=== PATIENT | female | born 1970 | race Caucasian/White ===

== ENCOUNTER 2018-11-11 20:19 | Inpatient (IN) | payer MEDICAID, SELFPAY ==
[2018-11-11] VITALS (22 sets, daily range): BP systolic 109–147; BP diastolic 60–85; PULSE 75–93; RESP 13–23; TEMP 36.9–37; O2SAT 95–100
--- NOTE | 2018-11-11 20:44 | DI.CT_ITS ---
SYMPTOM/DIAGNOSIS: DIZZY, LT FACIAL NUMBNESS NONCONTRAST HEAD CT: Comparison is made with 11/30/16. No intracranial hemorrhage, mass or infarct is seen. The ventricles are normal in size. There is no evidence of skull fracture. The sinuses and mastoid air cells appear clear. The cerebellar tonsils extend slightly below the foramen magnum consistent with tonsillar ectopia. This is unchanged from the previous exam. IMPRESSION: No acute abnormality. CTA HEAD: CT angiography was performed with multi slice acquisition and multi planar and 3D reconstruction. There is no evidence of vascular occlusion, significant stenosis or dissection. No aneurysm is seen. There is no evidence of venous thrombosis. There is normal variant of a hypoplastic right A1 segment. IMPRESSION: No acute abnormality. CTA NECK: CT angiography was performed with multi slice acquisition and multi planar and 3D reconstruction. The common, internal and external carotid arteries and vertebral arteries show normal diameter. No dissection, occlusion or stenosis is seen. There is mild tortuosity of the left internal carotid artery. IMPRESSION: Negative CTA of the neck.
--- NOTE | 2018-11-11 20:49 | ED.GENADUL_ITS ---
Discharge Plan Disposition Patient Disposition: [facility] INPATIENT Condition: Fair Discharge Details Chief Complaint: Dizzy/Sync Clinical Impression: Left facial numbness, Vertigo Primary Care Provider: Edilberto Liang ED Provider: Juancarlos Gan Home Meds and New Rx's Prescriptions: No Action No Known Home Meds RF: 0 Medical Decision Making Patient presents to ED with complaint of left facial numbness that occurred 30 minutes prior to arrival. She had vertigo prior to that for a couple of hours. She is neurologically intact other than subjective decreased face sensation and scores a 1 on the NIH scale. Her blood glucose is fine. She is anxious which may explain her elevated blood pressure which is mild. She is sent for CT head followed by CTA head and neck. Laboratory studies obtained. EKG is sinus rhythm with no acute changes. Patient's laboratory studies are unremarkable. Patient's head CT is normal. Patient CTA of head and neck is read as normal. Patient reports vertigo still present although again not as severe as it been in the past. She feels nauseated. She is ordered for IV Zofran and will follow this with p.o. Antivert. She reports that her face feels better though still is slightly numb to her. She has had no further new neurologic symptoms. Case discussed with hospitalist. Patient will be admitted for further work-up o f TIA/CVA. Lab Data Lab results reviewed: Yes I reviewed the patient's lab results. ECG Data Attestation: I personally reviewed and interpreted this ECG (s) as follows: Prior ECG tracings: not available for review Interpretation: Normal sinus rhythm at a rate of 79. Normal axis and intervals. Normal ST segments. HPI General Mode of arrival: wheelchair . Date/Time Provider Initiated Documentation: 11/11/18 20:22 . Limitations to Documentation: no limitations . Information obtained by: patient . HPI Narrative: Patient presents to ED with development of left facial numbness/ tightness/stinging 30 minutes prior to arrival. 2 hours prior to arrival she had noticed some dizziness which she describes as vertigo. She has history of same. This is not as severe as previous vertigo had been. She denies any headache. She denies any vision change. She was able to walk in. She would not have come in only for the dizziness but became concerned when the left side of her face started to feel funny. She has not noticed numbness elsewhere. She has no weakness. She feels like she is a little confused but she is clearly very anxious right now. She denies having any pain. She has some nausea but no vomiting. She has no significant past medical history but does smoke. Related Data Home Medications Medication Instructions Recorded Confirmed Unknown [No Known Home Meds] 11/11/18 11/11/18 Allergies Allergy/AdvReac Type Severity Reaction Status Date / Time clindamycin Allergy Severe Anaphylaxsi Unverified 11/11/18 20:31 s venom-honey bee Allergy Unverified 11/11/18 20:31 wheat Allergy Unverified 11/11/18 20:31 acetaminophen AdvReac Severe Anaphylaxsi Unverified 11/11/18 20:31 [From Tylenol Cold Head s Congestion] dextromethorphan AdvReac Severe Anaphylaxsi Unverified 11/11/18 20:31 [From Tylenol Cold Head s Congestion] guaifenesin AdvReac Severe Anaphylaxsi Unverified 11/11/18 20:31 [From Tylenol Cold Head s Congestion] phenylephrine AdvReac Severe Anaphylaxsi Unverified 11/11/18 20:31 [From Tylenol Cold Head s Congestion] seasonal allergies Allergy Uncoded 11/11/18 20:31 General Stated Complaint: Dizzy/Sync KURT: 3 Review of Systems Review of Systems 04/10 Review of Systems completed and is negative except as stated above in HPI (Systems reviewed: Const, Eyes, ENT, Resp, CV, GI, , MSK, Skin, Neuro) [facility] Medical History Kidney stones (Chronic) GERD (gastroesophageal reflux disease) (Chronic) Non-celiac gluten sensitivity (Chronic) Surgical History S/P hernia repair (Chronic) section (Inactive) Cholecystectomy (Inactive) Dilation and curettage (Inactive) Social History Smoking/Tobacco Use Status: Current every day Tobacco Type: cigars Alcohol Intake: never Drug use: Never Do you feel safe at home: Yes Do you feel safe in your relationship?: Yes Exam Narrative Exam Narrative: Vitals: Afebrile with mild elevated blood pressure but otherwise normal vital signs. Const: WDWN female anxious but in NAD. HEENT: NC/AT. Normal facial exam. Eyes: Normal conjunctiva and sclera. PERRL and EOMI with no nystagmus. Neck: Supple. Trachea midline. Lungs: Normal respiratory effort. Lungs are clear. Cor: RRR without murmur/gallop. Good radial pulses. GI: Soft. NT/ND. No guarding or rebound. Neuro: A+O x 3. Speech is normal. She seems a little confused. CN II - XII is intact. Sensory is subjectively decreased left face but is in tact. Strength is 5/5. Sensory in tact elsewhere. No ataxia. Ext: No C/C/E. No deformity or tenderness. Skin: Warm and dry without rash. Course Vital Signs Temperature 98.6 F 11/11/18 20:25 Pulse 81 11/11/18 20:25 Respiratory Rate 18 11/11/18 20:25 Blood Pressure 147/73 H 11/11/18 20:25 Pulse Oximetry 99 11/11/18 20:25 Temperature 98.6 F 11/11/18 20:25 Temperature Source Skin 11/11/18 20:25 Pulse 81 11/11/18 20:25 Respiratory Rate 18 11/11/18 20:25 Respiratory Effort Non-Labored 11/11/18 20:29 Blood Pressure 147/73 H 11/11/18 20:25 Blood Pressure Position Supine 11/11/18 20:25 Pulse Oximetry 99 11/11/18 20:25 Oxygen Delivery Method Room Air 11/11/18 20:25 Oxygen Flow Rate 0 11/11/18 20:25 Pain Level 0 11/11/18 20:25 Critical Care Time Critical Care Time: Yes Total Critical Care Time: 60 Attestation: TIA/CVA work up/admit
[2018-11-11] MEDS: Omnipaque 350 MG/ML 100 ML BTL IJ (20:57)
[2018-11-11 21:04] LABS: Abs Immature Grans 0.08 k/cumm (0.0-0.09); Absolute Basophil Count 0.05 k/cumm (0.0-0.2); Absolute Lymphocyte Count 6.25 k/cumm (1.2-3.4); Absolute Monocyte Count 1.38 k/cumm (0.11-0.7); Absolute Neutrophil Count 9.88 k/cumm (1.2-6.7); Basophils % 0.3; Eosinophils % 1.8; HCT 43.2 % (36.0-46.0); HGB 14.4 g/dL (12.0-15.5); Immature Grans % 0.4; Lymphocytes % 34.8; Mean Corp. HGB Concentration 33.3 g/dL (32.0-36.0); Mean Corpuscular Hemoglobin 29.5 pg (27.0-33.0); Mean Corpuscular Volume 88.5 fL (80-95); Mean Platelet Volume 10.3 fL (8.0-11.0); Monocytes % 7.7; Platelet Count 434 x1000/uL (130-400); RBC 4.88 m/cumm (4.00-5.20); RBC Distribution Width 14.9 % (11.7-14.6); White Blood Cell Count 17.97 k/cumm (4.4-10.8)
[2018-11-11 21:05] LABS: Absolute Eosinophil Count 0.32 k/cumm (0.0-0.7)
[2018-11-11] MEDS: Normal Saline 1,000 ML 125 ML IV (21:14)
--- NOTE | 2018-11-11 21:16 | DI.VRAD_ITS ---
EXAM: CT Head Without Contrast EXAM DATE/TIME: 11/11/2018 8:46 PM CLINICAL HISTORY: 48 years old, female; Signs and symptoms; Other: Dizzy; Left face numbness TECHNIQUE: Imaging protocol: Axial computed tomography images of the head without contrast. Coronal and sagittal reformatted images were created and reviewed. Radiation optimization: All CT scans at this facility use at least one of these dose optimization techniques: automated exposure control; mA and/or kV adjustment per patient size (includes targeted exams where dose is matched to clinical indication); or iterative reconstruction. COMPARISON: CT HEAD AND SINUS WO 11/30/2016 9:58 AM FINDINGS: Brain: No extra-axial fluid collections. No evidence of acute intracranial hemorrhage. No evidence of acute or subacute intracranial ischemia/infarct. No intracranial mass lesions. Low-lying cerebellar tonsil extending 1.5 mm below the foramen magnum, which is consistent with normal variant tonsillar ectopia and does not meet criteria to confirm Chiari 1 malformation. Midline shift: No midline shift or herniation. Ventricles: Ventricles normal. Bones/joints: The calvarium and visualized facial bones are intact. Sinuses: Visualized paranasal sinuses are clear. Mastoid air cells: Visualized mastoid air cells are clear. Orbits: Orbital contents demonstrate no evidence of acute abnormality. Soft tissues: The scalp and visualized soft tissues are unremarkable. Vasculature: The visualized major intracranial arterial segments demonstrate no gross abnormality by noncontrast CT. IMPRESSION: 1. No acute intracranial process. 2. Normal variant right sided cerebellar tonsillar ectopia which does not meet criteria to suggest Chiari 1 malformation. Dictated and Authenticated by: Luis A Westbrook MD. Ordering:JONAS Bauer MD
[2018-11-11 21:18] LABS: Diff Comment Diff Reviewed; RBC Morphology Normal
[2018-11-11 21:21] LABS: ALT 29 U/L (12-78); AST 16 U/L (15-37); Albumin 3.7 g/dL (3.4-5.0); Alkaline Phosphatase 76 U/L (46-116); Anion Gap 9.5 mmol/L (3-11); BUN 8 mg/dL (7-18); Bilirubin, Total 0.2 mg/dL (0.2-1.0); CO2 27.5 mmol/L (21.0-32.0); CREATININE 0.78 mg/dL (0.55-1.02); Calcium 8.8 mg/dL (8.5-10.1); Chloride 101 mmol/L (98-107); Glucose 87 mg/dL (70-100); Magnesium 2.1 mg/dL (1.8-2.4); Potassium 3.5 mmol/L (3.5-5.1); Sodium 138 mmol/L (136-145); Total Protein 7.5 g/dL (6.4-8.2)
[2018-11-11 21:22] LABS: Troponin I < 0.02 ng/mL (0.00-0.06)
[2018-11-11 21:25] LABS: INR 0.9 (0.9-1.1); PTT Activated 26.7 sec (21.0-31.4); Prothrombin Time 9.2 sec (9.3-11.0)
--- NOTE | 2018-11-11 21:34 | DI.VRAD_ITS ---
EXAM: CT Angiography Head With Contrast EXAM DATE/TIME: 11/11/2018 8:46 PM CLINICAL HISTORY: 48 years old, female; Signs and symptoms; Other: Dizzy/left face numbness TECHNIQUE: Imaging protocol: Axial computed tomographic angiography images of the head with intravenous contrast using CT angiography protocol. Coronal and sagittal reformatted images were created and reviewed. 3D rendering: MIP reconstructed images were created and reviewed. Radiation optimization: All CT scans at this facility use at least one of these dose optimization techniques: automated exposure control; mA and/or kV adjustment per patient size (includes targeted exams where dose is matched to clinical indication); or iterative reconstruction. Contrast material: OMNIPAQUE; Contrast volume: 85 ml; Contrast route: R AC; COMPARISON: CT HEAD FOR STROKE PROTOCOL 11/11/2018 8:53 PM FINDINGS: Right internal carotid artery: The visualized distal right ICA cervical segment is unremarkable. The right ICA petrous segment is unremarkable. Right ICA cavernous segment is unremarkable. The right ICA supraclinoid segment is unremarkable. Right anterior cerebral artery: Normal variant small/hypoplastic right A1 segment. Right HAO distribution otherwise unremarkable. The anterior communicating artery is unremarkable. Right middle cerebral artery: Unremarkable. No occlusion or significant stenosis. No aneurysm. Right posterior cerebral artery: Unremarkable. No occlusion or significant stenosis. No aneurysm. Right vertebral artery: Unremarkable. No occlusion or significant stenosis. No aneurysm. Left internal carotid artery: The visualized distal left ICA cervical segment is unremarkable. The left ICA petrous segment is unremarkable. Left ICA cavernous segment is unremarkable. The left ICA supraclinoid segment is unremarkable. Left anterior cerebral artery: Unremarkable. No occlusion or significant stenosis. No aneurysm. Left middle cerebral artery: Unremarkable. No occlusion or significant stenosis. No aneurysm. Left posterior cerebral artery: Unremarkable. No occlusion or significant stenosis. No aneurysm. Left vertebral artery: Unremarkable. No occlusion or significant stenosis. No aneurysm. Basilar artery: Unremarkable. No occlusion or significant stenosis. No aneurysm. Dural sinuses/cerebral veins: The dural venous sinuses and major cortical veins enhance appropriately without evidence of thrombosis. HEAD: Brain: No enhancing brain lesions or vascular malformations are identified. IMPRESSION: No evidence of large vessel occlusion. No evidence of arterial dissection or aneurysm/pseudoaneurysm. No acute intracranial process is evident. EXAM: CT Angiography Neck With Contrast EXAM DATE/TIME: 11/11/2018 8:46 PM CLINICAL HISTORY: 48 years old, female; Signs and symptoms; Other: Dizzy/left face numbness TECHNIQUE: Imaging protocol: Axial computed tomographic angiography images of the neck with intravenous contrast using CT angiography protocol. Coronal and sagittal reformatted images were created and reviewed. 3D rendering: MIP reconstructed images were created and reviewed. Radiation optimization: All CT scans at this facility use at least one of these dose optimization techniques: automated exposure control; mA and/or kV adjustment per patient size (includes targeted exams where dose is matched to clinical indication); or iterative reconstruction. Contrast material: OMNIPAQUE; Contrast volume: 85 ml; Contrast route: R AC; COMPARISON: CT HEAD FOR STROKE PROTOCOL 11/11/2018 8:53 PM FINDINGS: VASCULATURE: Right common carotid artery: Normal. No significant stenosis. No dissection or occlusion. Right internal carotid artery: Mild tortuosity of the mid right ICA cervical segment with short segment mixed plaque in the mid segment producing mild stenosis of less than 50%. Right external carotid artery: Normal. No occlusion or significant stenosis. Right vertebral artery: Normal. No significant stenosis. No dissection or occlusion. Left common carotid artery: Normal. No significant stenosis. No dissection or occlusion. Left internal carotid artery: Mild tortuosity without stenosis. Left external carotid artery: Normal. No occlusion or significant stenosis. Left vertebral artery: Normal. No significant stenosis. No dissection or occlusion. Subclavian arteries: The visualized right subclavian artery is unremarkable. The visualized left subclavian artery is unremarkable. Brachiocephalic artery: The brachiocephalic artery is unremarkable. Aorta: The visualized aortic arch is unremarkable, demonstrating no evidence of aneurysm or dissection. NECK: Thyroid: The thyroid gland is unremarkable. Bones/joints: No acute osseous abnormalities are identified. Soft tissues: No significant soft tissue swelling or hematoma. Lungs: The visualized pulmonary apices demonstrate patchy mild atelectasis. IMPRESSION: 1. No evidence of hemodynamically significant arterial occlusive disease. 2. No evidence of arterial dissection or aneurysm/pseudoaneurysm. 3. Mild stenosis in the mid right ICA cervical segment, estimated at less than 50% based on NASCETcriteria type measurement. COMMENT: Reference per NASCET criteria for degree of stenosis: Mild: less than 50% stenosis. Moderate: 50-69% stenosis. Severe: 70-94% stenosis. Near occlusion: 95-99% stenosis. Dictated and Authenticated by: Luis A Westbrook MD. Ordering:JONAS Bauer MD
[2018-11-11] MEDS: Ondansetron 4 MG/2 ML VIAL IVP (21:56)
[2018-11-11] MEDS: Normal Saline Flush 10 ML SYR IVP (21:57)
[2018-11-11] MEDS: Meclizine 25 MG TAB PO (22:13)
--- NOTE | 2018-11-11 22:33 | W.PM.HP.N ---
Date of service: 11/11/18 Time of Service: 22:34 Assessment and Plan (1) Facial numbness: Current visit: Yes Status: Acute Spell, unclear what is going on here. First it is not clear whether the vertigo is to be considered part of the picture or if this is a coincidental component of a pre-exiting condition. That the two occurred together though argues for the former. differential would include stroke (though positive symptom atypical; namely the eye pain); migraine; CPA tumor (wrt symptoms referable to CNN 5 and 8, though CT negative); forme fruste Zoster or Choi's palsy; or unexplainedd facial sympttoms. For now I would suggest monitoring, single dose ASA, and consult Neurology, and perhaps MRI. History of Present Illness Chief Complaint: facial numbness Narrative: 48 year old ambidexterrous female with h/o episodic vertigo, and prior h/o uncharacterized headaches. Comes in with typical vertigo, but then additional symptoms consisting of first a pain in left eye then numbness left side of face. Additionally she says she had some word finding difficulty (though it is not clear to me whether this may have been more anxiety). In the ER CT brain and CTA both negative. patient given Meclizine and Zofran and her symptoms have essentially resolved except that she continues to have a degree of anorexia. Review of Systems Review of Systems All systems reviewed & are unremarkable except as noted in HPI and below PFSH Medical History Kidney stones (Chronic) GERD (gastroesophageal reflux disease) (Chronic) Non-celiac gluten sensitivity (Chronic) Surgical History S/P hernia repair (Chronic) section (Inactive) Cholecystectomy (Inactive) Dilation and curettage (Inactive) Social History Smoking/Tobacco Use Status: Current every day Tobacco Type: cigars Alcohol Intake: never Drug use: Never Do you feel safe at home: Yes Do you feel safe in your relationship?: Yes Meds Home Medications Medication Instructions Recorded Confirmed Type Unknown [No Known Home Meds] 11/11/18 11/11/18 History Allergies Allergy/AdvReac Type Severity Reaction Status Date / Time clindamycin Allergy Severe Anaphylaxsi Unverified 11/11/18 20:31 s venom-honey bee Allergy Unverified 11/11/18 20:31 wheat Allergy Unverified 11/11/18 20:31 acetaminophen AdvReac Severe Anaphylaxsi Unverified 11/11/18 20:31 [From Tylenol Cold Head s Congestion] dextromethorphan AdvReac Severe Anaphylaxsi Unverified 11/11/18 20:31 [From Tylenol Cold Head s Congestion] guaifenesin AdvReac Severe Anaphylaxsi Unverified 11/11/18 20:31 [From Tylenol Cold Head s Congestion] phenylephrine AdvReac Severe Anaphylaxsi Unverified 11/11/18 20:31 [From Tylenol Cold Head s Congestion] seasonal allergies Allergy Uncoded 11/11/18 20:31 Exam Narrative Exam Narrative: 137/76, 86, 37.0, 22. HEENT no trauma. no nystagmus, EAC/TM WNL AU. Neck supple no bruit; lungs clear; heart RRR; abdomen soft NT; extrno edema, pulse equal. Neuro: Oriented x 3, language fluent, PERRL, discs sharp, EOMI, no facial asymettry; motopr 5/5, sensation shows perhaps minimal decrease pin on left side of face, all distributions, toes downgoing. Results Labs : 11/11/18 20:35 11/11/18 20:35 Laboratory Results - last 24 hr 11/11/18 11/11/18 11/11/18 20:35 20:35 20:35 WBC 17.97 H RBC 4.88 Hgb 14.4 Hct 43.2 MCV 88.5 MCH 29.5 MCHC 33.3 RDW 14.9 H Plt Count 434 H MPV 10.3 Immature Gran % 0.4 Neutrophils % 55.0 Lymphocytes % 34.8 Monocytes % 7.7 Eosinophils % 1.8 Basophils % 0.3 Absolute Neutrophils 9.88 H Absolute Lymphocytes 6.25 H Absolute Monocytes 1.38 H Absolute Eosinophils 0.32 Absolute Basophils 0.05 Differential Comment Diff reviewed RBC Morphology Normal PT 9.2 L INR 0.9 APTT 26.7 Sodium 138 Potassium 3.5 Chloride 101 Carbon Dioxide 27.5 Anion Gap 9.5 BUN 8 Creatinine 0.78 Estimated GFR/1.73 m2 >= 60.00 Glucose 87 Calcium 8.8 Magnesium 2.1 Total Bilirubin 0.2 AST 16 ALT 29 Alkaline Phosphatase 76 Troponin I < 0.02 Total Protein 7.5 Albumin 3.7 Last Vital Signs Temp 37.0 C 11/11/18 20:25 Pulse 86 11/11/18 22:01 Resp 22 11/11/18 22:10 BP 137/76 11/11/18 22:01 Pulse Ox 96 11/11/18 22:10
[2018-11-11] MEDS: Aspirin 325 MG TAB PO (23:57)
[2018-11-12] VITALS (9 sets, daily range): BP systolic 100–129; BP diastolic 59–77; PULSE 62–75; RESP 16–18; TEMP 36.9–37.2; O2SAT 95–96
[2018-11-12] MEDS: Ondansetron 4 MG/2 ML VIAL IVP ×2 (04:19→11:03)
[2018-11-12] MEDS: Normal Saline 1,000 ML 125 ML IV ×3 (04:20→20:54)
[2018-11-12 07:27] LABS: HCT 38.4 % (36.0-46.0); HGB 12.6 g/dL (12.0-15.5); Mean Corp. HGB Concentration 32.8 g/dL (32.0-36.0); Mean Corpuscular Hemoglobin 29.4 pg (27.0-33.0); Mean Corpuscular Volume 89.7 fL (80-95); Mean Platelet Volume 10.2 fL (8.0-11.0); Platelet Count 393 x1000/uL (130-400); RBC 4.28 m/cumm (4.00-5.20); White Blood Cell Count 10.51 k/cumm (4.4-10.8)
--- NOTE | 2018-11-12 08:56 | INITIAL_ITS ---
- If Service Date Differs Date of service: 11/12/18 Time of Service: 08:55 Care Management Initial Assess REASON FOR HOSPITALIZATION:: Facial numbness PAST MEDICAL HISTORY/PAST SURGICAL HISTORY:: GERD, Kidney stones, severe wheat allergy, non-celiac sensitivity, reports a history of throat abcesses that occasionaly pop, and Vertigo with dizzyness over the past two years. PREVIOUS FUNCTIONAL STATUS/SOCIAL/FAMILY SUPPORTS:: Mariama lives in [place], [place] with her SO and her daughter, she has two children. 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. She is indepedent at baseline she goes camping every weekend with her mom and two sisters, she comes from a large family of children. She has a sister Becca who is also an RN who she ideintifies is her main support an advocate. CURRENT FUNCTIONAL STATUS:: Mariama is alert and engaged, her Mom and Sister Becca are at the bedside she is states it is okay for the family to be present during CM assessment. Mariama reports that she was seeing Edilberto Liang at [facility]. She feels that he was dismissive of her symptoms including problems with her throat, and did not listen well. She states she did follow up with ENT at [facility] about two years ago however did not return for follow up. She is willing to meet with a different provider at [facility]. CM will send a referral over for Leslie Guzman NP which patient agrees to. Mariama states she was scared when the side of her face went numb, she states it feels like she has been slapped in the face. She states she has had vertigo for the past two years, the dizzyness has been difficult to manage. She feels that her symptoms were bad enough to come to the ED as she would have just managed it at home if the symptoms did not scare her so much. She is relieved that CT was negitive she is asking if she will have an MRI. CM reviewed benefits and the possablity that the procedure may need to be done as an outpatinet. She states she was scheduled to see a neurologist two years ago however did not follow through. ADVANCE DIRECTIVES:: None on file Has patient been provided with information about the portal?: Yes Did the patient sign up for the portal?: No CODE STATUS:: Full Code INSURANCE COVERAGE / FINANCIAL ISSUES:: Medicaid CURRENT HOME/COMMUNITY SERVICES/EQUIPMENT:: None at this time PRIMARY CARE PHYSICIAN:: [facility] - CM to refer her to Leslie Guzman for primary care POTENTIAL DISCHARGE NEEDS:: Follow up appointment with primary care new provider. PATIENT/FAMILY EDUCATION NEEDS:: Discharge education, limitations and follow up plan of care including ask me three and self management. ANTICIPATED BARRIERS TO DISCHARGE:: None TRANSPORTATION:: Via private car with family at time of discharge. PLAN:: Mariama remains observation at this time. She is receiving IV fluids her WBC is now WNL. Anticipate she will be discharged home with outpatient MRI, PCP and Neurology follow up. She may also need a referral to ENT for follow up. CM to continue to provide support to patient and family ongoing discharge planning and referrals to community resources.
--- NOTE | 2018-11-12 09:43 | PHARADMIT ---
Addendum entered by Michelle Guerra 11/13/18 11:17: Pharmacy Note Subjective c/o numbness, tingling, vertigo, anxiety Objective VS ok, pain 10/05, labs/lytes ok on Telemetry Assessment added Aspirin 325mg q8h/prn pain...allergy to Acetaminophen Statin dc'd-no evidence of hyperlipidemia Lorazepam 0.5mg IVP prior to Brain MRI on Wednesday and C-Spine.....not sure about IV access IVF's dc'd Plan MRI Wednesday to rule out CVA, Neurology consult, Echo, Lyme titer send out Original Note: Admission Pharmacy Clinical Review FACIAL NUMBNESS, LEFT EYE PAIN Code Status Full Code Current Weight 95.254 kg Renally Cleared and Narrow Therapeutic Index Meds CrCl~78ml/min QTc Value / Action Taken QTC 436 BP Control, Fever BP 105/70 Afebrile Electrolytes reviewed in range DVT Prophylaxis None Opiate Usage / Scheduled Bowel Regimen Ordered Plt/SCr for Heparin / Enoxaparin Plt 393 SCr 0.78 INR for Warfarin H/H stable, WBC/Bands H/H 12.6/38.4 WBC 10.51 Antibiotic appropriateness NONE Cultures and Sensitivities NONE Surgical ABX d/c within 24 hr DM control / Insulin Dosing Heart Failure (Check EF%) (ANSHUL's, B-Block, Diuretics) none IV to PO Switch Home Meds Reviewed Home Meds Not Ordered no home meds Comments troponin negative workups to include: migraine, seizure, CVA, possibly done as outpatient CTA of head: negative/unremarkable
[2018-11-12] MEDS: Normal Saline Flush 10 ML SYR IVP (11:02)
[2018-11-12] MEDS: Meclizine 25 MG TAB PO ×2 (11:04→20:55)
--- NOTE | 2018-11-12 11:25 | NUR.NOTE ---
Nursing Note: In a conversation with this patient she stated that she has dealt with all of her symptoms except the facial numbness for about 5 years. Previous symptoms include: dizziness, eye pain, headaches, nausea, weakness, passing out.
[2018-11-12] MEDS: Aspirin E.C. 81 MG TABEC PO (14:21)
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
[2018-11-12] MEDS: Atorvastatin 20 MG TAB PO (20:55)
[2018-11-13] VITALS (9 sets, daily range): BP systolic 95–135; BP diastolic 60–78; PULSE 58–71; RESP 16–18; TEMP 36.6–37.1; O2SAT 96–99
[2018-11-13] MEDS: Normal Saline 1,000 ML 125 ML IV (05:00)
[2018-11-13 07:30] LABS: Abs Immature Grans 0.04 k/cumm (0.0-0.09); Absolute Basophil Count 0.04 k/cumm (0.0-0.2); Absolute Eosinophil Count 0.32 k/cumm (0.0-0.7); Absolute Lymphocyte Count 3.51 k/cumm (1.2-3.4); Absolute Monocyte Count 0.93 k/cumm (0.11-0.7); Absolute Neutrophil Count 5.92 k/cumm (1.2-6.7); Basophils % 0.4; HCT 38.7 % (36.0-46.0); HGB 12.6 g/dL (12.0-15.5); Immature Grans % 0.4; Lymphocytes % 32.6; Mean Corp. HGB Concentration 32.6 g/dL (32.0-36.0); Mean Corpuscular Hemoglobin 29.4 pg (27.0-33.0); Mean Corpuscular Volume 90.2 fL (80-95); Mean Platelet Volume 10.3 fL (8.0-11.0); Monocytes % 8.6; Platelet Count 359 x1000/uL (130-400); RBC 4.29 m/cumm (4.00-5.20); RBC Distribution Width 15.1 % (11.7-14.6); White Blood Cell Count 10.76 k/cumm (4.4-10.8)
[2018-11-13] MEDS: Normal Saline Flush 10 ML SYR IVP ×3 (07:39→08:30)
[2018-11-13 07:44] LABS: Anion Gap 8.9 mmol/L (3-11); BUN 9 mg/dL (7-18); CO2 24.1 mmol/L (21.0-32.0); CREATININE 0.69 mg/dL (0.55-1.02); Calcium 7.5 mg/dL (8.5-10.1); Chloride 105 mmol/L (98-107); Glucose 101 mg/dL (70-100); Potassium 3.8 mmol/L (3.5-5.1); Sodium 138 mmol/L (136-145)
[2018-11-13 07:49] LABS: Cholesterol 146 mg/dL (50-200); HDL Cholesterol 39 mg/dL (40-60); LDL CHOLESTEROL 91 mg/dL (<100); Magnesium 1.8 mg/dL (1.8-2.4); Triglyceride 62 mg/dL (30-150)
[2018-11-13] MEDS: Aspirin E.C. 81 MG TABEC PO (09:48)
--- NOTE | 2018-11-13 10:50 | W.PM.PROGNOT ---
Date of Service Date of service: 11/13/18 Time of Service: 10:50 Assessment and Plan (1) Facial numbness: Current visit: Yes Status: Acute Persistent. In conjunction with expressive aphasia on presentation as well as RUE numbness mentioned by patient yesterday - per my discussion with [place] [facility] [place] there is a concern for CVA (sx persistent too long for this to be a TIA), atypical migraine, or demyelinating disease. As some of the patient's symptoms (burning on the skin) are more chronic in nature, demyelinating illness does go up on differential. For MRI brain w/w/o contrast tomorrow - in addition to this, we will also obtain MRI of c-spine. Continue to monitor on tele - no arrythmic events reported so far. Lipids at goal - I d/c'ed statin until results of MRI are known. Continue asa for now. F/u Lyme titers. Neurology at [facility] is consulted. (2) History of traumatic brain injury: Current visit: Yes Status: Chronic It is unclear if this fact is related to current sx. For MRI. (3) Neck pain: Current visit: Yes Status: Chronic Obtain MRI c-spine (4) Retro-ocular headache: Current visit: Yes Status: Resolved Optic neuroitis (less likely now since it has resolved) vs atypical migraine. As above. (5) Vertigo: Current visit: Yes Status: Acute Could be part of the TIA/CVA or demyelinating illness. As above (6) History of peritonsillar abscess: Current visit: Yes Status: Resolved I reviewed records from [facility] [place] - the patient did see ENT in 2017, and at that time had a resolving abscess. Per our radiology preliminary reading, the soft tissue structures of the neck are normal, and there is no evidence of recurrence thereof at least at the time that the study was done. The patient has no trouble swallowing or breathing. I think the patient is right - and her current sensation likely has more to do with dry mouth. She does have a small goiter, but it is not nearly big enough to cause any compressive symptoms. If symptoms persist, she would benefit from outpatient follow up with ENT. (7) Discharge planning issues: Current visit: Yes Status: Acute Full code Anticipate discharge tomorrow after completion of studies as well as neurology consultation. (8) DVT prophylaxis: Current visit: Yes Status: Acute SCD's + TEDs. Chemical DVT prophylaxis is contraindicated in setting of a possible acute CVA due to the risk of hemorrhagic conversion. Subjective Interval history since last seen: The patient wanted to leave AMA earlier, but decided to stay. This morning, her vision is a little better, but still jumpy. She especially starts to feel dizzy when looking to the left or trying to get up. The left facial numbness remains. The RUE numbness has resolved with pulling out of the IV. The LUE was also more swollen this am with the IV in, but is now better since IV got taken out. The patient does not have a headache. It doesn't hurt behind her left eye like it did 2 days ago. She denies chest pain, shortness of breath, nausea, vomiting. She reported to nursing this morning that she feels like her throat is getting full again, like her cysts are coming back up in her throat, but maybe it's because the medication (meclizine) is drying my mouth out. Also, continues to report neck pain and states that in the past she was told she would have to have neck surgery. Exam Narrative Exam Narrative: General: Very pleasant middle-aged female, A&Ox3, NAD HEENT: EOMI, MMM, mild goiter noted, a mild horizontal nystagmus is noted when looking to the left, at the same time as patient experiencing dizziness. Heart: RRR, no m/r/g Lungs: CTAB GI: abdomen is soft, nontender, nondistended Extremities: no e/c/c BLE's, 5/5 strength in all 4 extremities, 1+ pedal pulses B Objective Objective Clinical Data: Abnormal lab results 11/13/18 11/13/18 11/13/18 Range/Units 06:25 06:25 06:25 RDW 15.1 H (11.7-14.6) % Absolute Lymphocytes 3.51 H (1.2-3.4) k/cumm Absolute Monocytes 0.93 H (0.11-0.7) k/cumm Glucose 101 H (70-100) mg/dL Calcium 7.5 L (8.5-10.1) mg/dL HDL Cholesterol 39 L (40-60) mg/dL Vital Signs Temperature 37.1 C 11/13/18 07:49 Temperature Source Tympanic 11/13/18 07:49 Pulse 62 11/13/18 08:52 Pulse Rhythm Regular 11/13/18 08:08 Pulse 92 H 11/11/18 22:10 Respiratory Rate 18 11/13/18 03:48 Respiratory Effort Non-Labored 11/13/18 08:08 Respiratory Depth Normal 11/12/18 20:59 Respiratory Pattern Normal 11/12/18 20:59 Blood Pressure 111/73 11/13/18 07:49 Blood Pressure Mean 91 11/11/18 22:01 Blood Pressure Position Supine 11/11/18 20:25 Pulse Oximetry 96 11/13/18 07:49 Oxygen Delivery Method Room Air 11/13/18 07:49 Oxygen Flow Rate 0 11/13/18 07:49 Pain Level 4 11/13/18 07:49 Comment 11/13/18 03:48 Intake & Output 11/12/18 11/12/18 11/13/18 11:59 23:59 11:59 Intake Total 2236.25 / 5786.667 3550.417 / 5786.667 1751.75 / 1751.75 Output Total 250 / 1350 1100 / 1350 Balance 1986.25 / 4436.667 2450.417 / 4436.667 1751.75 / 1751.75 Intake: IV 1406.25 / 3366.667 1960.417 / 3366.667 1351.75 / 1351.75 Oral 830 / 2420 1590 / 2420 400 / 400 Output: Urine 250 / 1350 1100 / 1350 Other: Urine Color Yellow Yellow Urine Appearance Clear Clear Urine Odor Normal None Voiding Methods Toilet Toilet Laboratory Results WBC 10.76 k/cumm (4.4-10.8) 11/13/18 06:25 RBC 4.29 m/cumm (4.00-5.20) 11/13/18 06:25 Hgb 12.6 g/dL (12.0-15.5) 11/13/18 06:25 Hct 38.7 % (36.0-46.0) 11/13/18 06:25 MCV 90.2 fL (80-95) 11/13/18 06:25 MCH 29.4 pg (27.0-33.0) 11/13/18 06:25 MCHC 32.6 g/dL (32.0-36.0) 11/13/18 06:25 RDW 15.1 % (11.7-14.6) H 11/13/18 06:25 Plt Count 359 x1000/uL (130-400) 11/13/18 06:25 MPV 10.3 fL (8.0-11.0) 11/13/18 06:25 Immature Gran % 0.4 11/13/18 06:25 Neutrophils % 55.0 11/13/18 06:25 Lymphocytes % 32.6 11/13/18 06:25 Monocytes % 8.6 11/13/18 06:25 Eosinophils % 3.0 11/13/18 06:25 Basophils % 0.4 11/13/18 06:25 Absolute Neutrophils 5.92 k/cumm (1.2-6.7) 11/13/18 06:25 Absolute Lymphocytes 3.51 k/cumm (1.2-3.4) H 11/13/18 06:25 Absolute Monocytes 0.93 k/cumm (0.11-0.7) H 11/13/18 06:25 Absolute Eosinophils 0.32 k/cumm (0.0-0.7) 11/13/18 06:25 Absolute Basophils 0.04 k/cumm (0.0-0.2) 11/13/18 06:25 Differential Comment Diff reviewed 11/11/18 20:35 RBC Morphology Normal 11/11/18 20:35 PT 9.2 sec (9.3-11.0) L 11/11/18 20:35 INR 0.9 (0.9-1.1) 11/11/18 20:35 APTT 26.7 sec (21.0-31.4) 11/11/18 20:35 Sodium 138 mmol/L (136-145) 11/13/18 06:25 Potassium 3.8 mmol/L (3.5-5.1) 11/13/18 06:25 Chloride 105 mmol/L (98-107) 11/13/18 06:25 Carbon Dioxide 24.1 mmol/L (21.0-32.0) 11/13/18 06:25 Anion Gap 8.9 mmol/L (3-11) 11/13/18 06:25 BUN 9 mg/dL (7-18) 11/13/18 06:25 Creatinine 0.69 mg/dL (0.55-1.02) 11/13/18 06:25 Estimated GFR/1.73 m2 >= 60.00 (mL/min/1.73m2) 11/13/18 06:25 Glucose 101 mg/dL (70-100) H 11/13/18 06:25 Calcium 7.5 mg/dL (8.5-10.1) L 11/13/18 06:25 Magnesium 1.8 mg/dL (1.8-2.4) 11/13/18 06:25 Total Bilirubin 0.2 mg/dL (0.2-1.0) 11/11/18 20:35 AST 16 U/L (15-37) 11/11/18 20:35 ALT 29 U/L (12-78) 11/11/18 20:35 Alkaline Phosphatase 76 U/L (46-116) 11/11/18 20:35 Troponin I < 0.02 ng/mL (0.00-0.06) 11/11/18 20:35 Total Protein 7.5 g/dL (6.4-8.2) 11/11/18 20:35 Albumin 3.7 g/dL (3.4-5.0) 11/11/18 20:35 Triglycerides 62 mg/dL (30-150) 11/13/18 06:25 Total Cholesterol 146 mg/dL (50-200) 11/13/18 06:25 LDL Cholesterol Direct 91 mg/dL (<100) 11/13/18 06:25 HDL Cholesterol 39 mg/dL (40-60) L 11/13/18 06:25
--- NOTE | 2018-11-13 13:08 | PDOC.CMPRO ---
- If Service Date Differs Date of service: 11/13/18 Time of Service: 13:08 Care Management Progress Note S/O: Mariama will change to inpatient today her symptoms of left sided facial numbness has not resolved. She will have a neuro consult on Wednesday and needs to have an MRI that is not available over the weekend. Provider did contact [facility] who decline the transfer and would be unable to provide MRI services. Mariama has a history of not following through with medical advise and complains of worsening symptoms she will remain inpatient until test are complete rule out neurological. A: Mariama is 48 year old female admitted with aphasia, left sided facial numbness P:Mariama changed to acute status. Anticipate she will be discharged home with outpatient MRI, PCP and Neurology follow up. She may also need a referral to ENT for follow up. CM to continue to provide support to patient and family ongoing discharge planning and referrals to community resources.
--- NOTE | 2018-11-13 13:22 | CMPROGNOTE_ITS ---
- If Service Date Differs Date of service: 11/13/18 Time of Service: 13:08 Care Management Progress Note S/O: Mariama will change to inpatient today her symptoms of left sided facial numbness has not resolved. She will have a neuro consult on Wednesday and needs to have an MRI that is not available over the weekend. Provider did contact [facility] who decline the transfer and would be unable to provide MRI services. Mariama has a history of not following through with medical advise and complains of worsening symptoms she will remain inpatient until test are complete rule out neurological. A: Mariama is 48 year old female admitted with aphasia, left sided facial numbness P:Mariama changed to acute status. Anticipate she will be discharged home with outpatient MRI, PCP and Neurology follow up. She may also need a referral to ENT for follow up. CM to continue to provide support to patient and family ongoing discharge planning and referrals to community resources.
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
[2018-11-13] MEDS: Aspirin 325 MG TAB PO (22:11)
[2018-11-14] VITALS (7 sets, daily range): BP systolic 106–125; BP diastolic 67–90; PULSE 66–91; RESP 16–20; TEMP 36.5–37.3; O2SAT 96–99
--- NOTE | 2018-11-14 07:31 | MERGE_ITS ---
*[facility]* *[facility]* [address] [place] [address] Date of study: 11/14/2018 Transthoracic Echocardiography M-mode, complete 2D, complete spectral Doppler, and color Doppler *STUDY CONCLUSIONS* Summary: 1. Left ventricle: The cavity size was normal. Systolic function was normal. The estimated ejection fraction was 60-65%. Diastolic parameters were normal. There was no evidence of elevated ventricular filling pressure by Doppler parameters. 2. Mitral valve: There was mild regurgitation. 3. Left atrium: The atrium was mildly dilated. 4. Right ventricle: The cavity size was normal. Wall thickness was normal. Systolic function was normal. 5. Right atrium: The atrium was mildly dilated. 6. Atrial septum: No defect or patent foramen ovale was identified. 7. Pulmonary arteries: Pulmonary systolic pressure was in the range of 25mm Hg to 35mm Hg. 8. Inferior vena cava: The vessel was patent and normal in size. The respirophasic diameter changes were in the normal range (greater than or equal to 50%), consistent with normal central venous pressure. *PATIENT PRESENTATION* Height: 165.1cm ((65in) ) S/D Pressure: 107 / 70 Weight: 94.8kg ((208.6lb) ) BSA: 2.12m^2 Test start time: 07:40 AM. Test stop time: 08:30 AM. PERFORMING Unknown PERFORMING [facility] CONSULTING Edilberto Liang UNIFIED COMMUNICATIONS ARCHITECT RT Deepa (R)(CT), [facility] ORDERING Ashley Duenas REFERRING Ashley Duenas *PROCEDURE DATA* Procedure information: The patient was identified by two identifiers. This study was interpreted by [facility]. Pertinent images and digital data are archived for permanent storage and are available for subsequent review. No prior study was available for comparison. Study status: Routine. Transthoracic echocardiography. M-mode, complete 2D, complete spectral Doppler, and color Doppler. A Transthoracic Echocardiogram was performed. Scanning was performed from the parasternal, apical, subcostal, and suprasternal notch acoustic windows. Images were obtained using an [id number] cardiac ultrasound machine. Image quality was adequate. Study completion: The patient tolerated the procedure well. History: PMH: Suspected CVA. *CARDIAC ANATOMY* Left ventricle: The cavity size was normal. Systolic function was normal. The estimated ejection fraction was 60-65%. The tissue Doppler parameters were normal. Diastolic parameters were normal. There was no evidence of elevated ventricular filling pressure by Doppler parameters. Aortic valve: Trileaflet. Doppler: There was no stenosis. There was no regurgitation. VTI ratio of LVOT to aortic valve: 0.86. Valve area (VTI): 2.5cm^2. Indexed valve area (VTI): 1.2cm^2/m^2. Peak velocity ratio of LVOT to aortic valve: 0.9. Valve area (Vmax): 2.6cm^2. Indexed valve area (Vmax): 1.2cm^2/m^2. Mean velocity ratio of LVOT to aortic valve: 0.74. Valve area (Vmean): 2.1cm^2. Indexed valve area (Vmean): 1cm^2/m^2. Mean gradient (S): 4mm Hg. Peak gradient (S): 6.9mm Hg. Aorta: Aortic root: The aortic root was normal in size. Ascending aorta: The ascending aorta was normal in size. Mitral valve: Doppler: There was no evidence for stenosis. There was mild regurgitation. Valve area by pressure half-time: 4.1cm^2. Indexed valve area by pressure half-time: 1.9cm^2/m^2. Peak gradient (D): 2.5mm Hg. Left atrium: The atrium was mildly dilated. Atrial septum: No defect or patent foramen ovale was identified. Right ventricle: The cavity size was normal. Wall thickness was normal. Systolic function was normal. Pulmonic valve: Doppler: There was no evidence for stenosis. There was mild regurgitation. Peak gradient (S): 3.5mm Hg. Tricuspid valve: Doppler: There was mild regurgitation. Pulmonary artery: Poorly visualized. Pulmonary systolic pressure was in the range of 25mm Hg to 35mm Hg. Right atrium: The atrium was mildly dilated. Pericardium: There was no pericardial effusion. Systemic veins: Inferior vena cava: Well visualized. The vessel was patent and normal in size. The respirophasic diameter changes were in the normal range (greater than or equal to 50%), consistent with normal central venous pressure. Baseline ECG: Normal sinus rhythm. Measurements Left ventricle Value Reference LV ID, ED, PLAX 4.9 cm 3.5 - 6.0 LV ID, ES, PLAX 3.2 cm 2.1 - 4.0 LV PW thickness, ED, PLAX 1.0 cm LV end-diastolic volume, 1-p A2C 124 ml LV ejection fraction, 1-p A2C 63 % LV end-diastolic volume, 1-p A4C 120 ml LV ejection fraction, 1-p A4C 65 % LV e', lateral 0.107 m/sec LV E/e', lateral 7 LV e', medial 0.09 m/sec LV E/e', medial 9 LV e', average 0.098 m/sec LV E/e', average 8 Ventricular septum Value Reference IVS thickness, ED, PLAX 1.0 cm LVOT Value Reference LVOT ID, A-P 1.9 cm LVOT area 2.9 cm^2 LVOT peak velocity, S 1.18 m/sec LVOT mean velocity, S 0.7 m/sec LVOT VTI, S 25.9 cm LVOT peak gradient, S 5.5 mm Hg LVOT mean gradient, S 2.4 mm Hg Stroke volume (SV), LVOT DP 74 ml Stroke index (SV/bsa), LVOT DP 35 ml/m^2 Aortic valve Value Reference Aortic valve peak velocity, S 1.3 m/sec Aortic valve mean velocity, S 0.95 m/sec Aortic valve VTI, S 30.0 cm Aortic mean gradient, S 4 mm Hg Aortic peak gradient, S 6.9 mm Hg VTI ratio, LVOT/AV 0.86 Aortic valve area, VTI 2.5 cm^2 Velocity ratio, peak, LVOT/AV 0.9 Aortic valve area, peak velocity 2.6 cm^2 Velocity ratio, mean, LVOT/AV 0.74 Aortic valve area, mean velocity 2.1 cm^2 Aortic valve area/bsa, mean velocity 1 cm^2/m^2 Aorta Value Reference Aortic root ID, ED 3.1 cm Ascending aorta ID, A-P, S 2.9 cm RVOT Value Reference RVOT VTI, S 16.5 cm Left atrium Value Reference LA ID, A-P, ES 3.2 cm LA ID/bsa, A-P 1.5 cm/m^2 <=2.2 LA area, ES, A4C (H) 25.5 cm^2 8.8 - 23.4 LA area, ES, A2C 23 cm^2 LA volume/bsa, ES, 1-p A4C 45 ml/m^2 LA volume, ES, 2-p 80 ml LA volume/bsa, ES, 2-p 38 ml/m^2 LA/aortic root ratio 1.04 Mitral valve Value Reference Mitral E-wave peak velocity 0.79 m/sec Mitral A-wave peak velocity 0.73 m/sec Mitral deceleration time 187 ms 150 - 230 Mitral pressure half-time 54 ms Mitral peak gradient, D 2.5 mm Hg Mitral E/A ratio, peak 1.09 Mitral valve area, PHT, DP 4.1 cm^2 Pulmonary veins Value Reference Pulmonary vein peak velocity, S 0.6 m/sec Pulmonary vein peak velocity, D 0.6 m/sec Pulmonary vein velocity ratio, peak, 1.01 S/D Pulmonary vein A-wave reversal peak 0.44 m/sec velocity Pulmonary vein A-wave reversal 141 ms duration Tricuspid valve Value Reference Tricuspid regurg peak velocity 2.5 m/sec Tricuspid peak RV-RA gradient 25.6 mm Hg Right atrium Value Reference RA area, ES, A4C (H) 20.9 cm^2 8.3 - 19.5 Pulmonic valve Value Reference Pulmonic peak gradient, S 3.5 mm Hg Legend: (L) and (H) asif values outside specified reference range. I have personally reviewed the images and have reviewed and edited the reported findings. Electronically signed by Mark Jara MD 11/14/2018 10:27
[2018-11-14] MEDS: Aspirin E.C. 81 MG TABEC PO (08:52)
[2018-11-14] MEDS: LORazepam 2 MG/ML VIAL 0.5 MG IVP (08:52)
--- NOTE | 2018-11-14 09:44 | DI.MRI_ITS ---
SYMPTOMS/DIAGNOSIS: NECK PAIN, RUE NUMBNESS MRI OF THE CERVICAL SPINE: T 1, T 2, FLAIR, STIR and T 2 3D sagittal and gradient echo axial sequences were performed. The cord signal and marrow signal appear normal. There are degenerative disc changes at C 5 - 6 and C 6 - 7, with endplate osteophytes and bulging disc, projecting posteriorly. There is effacement of the anterior CSF space at both levels. There is also mild to moderate bilateral neural foraminal narrowing at C 5 - 6. The more superior levels are unremarkable. No focal disc herniation is seen at any level. The cerebral tonsils project below the foramen magnum by 10 mm. IMPRESSION: 1. Degenerative disc changes at C 5 - 6 and C 6 - 7 cause narrowing of the AP dimension of the central canal. There is mild to moderate bilateral neural foraminal narrowing at C 5 - 6. 2. Low lying cerebellar tonsils. There is no mass effect upon the brain stem.
[2018-11-14] MEDS: Normal Saline Flush 10 ML SYR IVP (10:25)
[2018-11-14] MEDS: Gadoterate meglumine 20 ML VIAL 19 ML IVP (10:26)
--- NOTE | 2018-11-14 10:39 | DI.MRI_ITS ---
SYMPTOMS/DIAGNOSIS: LT FACIAL NUMBNESS, LUE NUMBNESS, CVA VS MS MRI OF THE BRAIN: Comparison is made with head CT dated . T 2 sagittal, T 1, T 2, FLAIR, diffusion and gradient echo axial and post Gadolinium T 1 axial and coronal sequences were performed. The exam is mildly limited by patient motion. No intracranial hemorrhage, mass or infarct is seen. The ventricles are normal in size. There is a single nonspecific area of high signal adjacent to the frontal horn of the left lateral ventricle. There are no abnormal areas of enhancement. The vascular flow voids appear intact. The orbits, sinuses and mastoid air cells are unremarkable. The cerebellar tonsils are again noted to extend approximately 1 cm beneath the cisterna magna. There is mass effect on the brain stem. IMPRESSION: Low lying cerebellar tonsils without evidence of mass effect. Minimal high signal adjacent to the frontal horn of the left lateral ventricle. There are no findings specific for multiple sclerosis.
[2018-11-14 12:10] LABS: Lyme Ab w Rflx to Lyme Confirm Negative
--- NOTE | 2018-11-14 14:37 | CHAPLAIN ---
Mariama was sitting up in bed when I visited. She shared some personal history about growing up in [place], [place] and then moving to [place]. She said she is anxious to be discharged because she is responsible for helping with some events around her daughter's 8th graduation from [employer].
--- NOTE | 2018-11-14 14:49 | PDOC.CMDIS ---
- If Service Date Differs Date of service: 11/14/18 Time of Service: 14:49 LACE Index Scoring Tool - Questions: Length of Stay (in days): 2 Acuity (Admit via E.D.?): Yes E.D. Visits: 2 - Answers: Total Score: 7 Risk of Readmission: Low Risk Care Management Discharge Reason for Hospitalization: Facial numbness Discharge Plan: aMriama will return home with no services. She will F/U with PCP and plan of care as prescribed. Mariama's family will transport her home. Patient/Family Education Needs: Review DC instructions, any limitations, and discuss 'Ask Me Three'
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
== END 2018-11-14 16:55 | disposition home or self-care (01) | DRG 92 ==
LOC: ER 22:57 → MS 11-12 08:20
PROVIDERS: Admitting Provider General Practice; Emergency Provider Emergency Medicine; PCP Specialist/Technologist Athletic Trainer; Visit Provider Internal Medicine
DX: R20.0 Anesthesia of skin (principal); R47.01 Aphasia; Z87.820 Personal history of traumatic brain injury; M50.322 Other cervical disc degeneration at C5-C6 level; M48.02 Spinal stenosis, cervical region; M54.2 Cervicalgia; R51 Headache; R42 Dizziness and giddiness; G43.809 Other migraine, not intractable, without status migrainosus; K21.9 Gastro-esophageal reflux disease without esophagitis; F17.290 Nicotine dependence, other tobacco product, uncomplicated; I34.0 Nonrheumatic mitral (valve) insufficiency
CPT/HCPCS: 36415; 36416; 70496; 70498; 70553; 80048; 80053; 80061; 82962; 83721; 85027; 93005; 96361; 96374; 99222; 99232; 99233; 99239; 99255; 99285; 70450; 72141; 83735; 84484; 85025; 85610; 85730; 86618; 93010; 93306; 99219; 99225; G0378; J2060; J2405; J3490

== ENCOUNTER 2018-11-29 16:19 | Outpatient (REF) | payer MEDICAID, SELFPAY ==
[2018-11-29 22:53] LABS: Calcium 9.1 mg/dL (8.5-10.1)
[2018-12-01 06:26] LABS: Vitamin D 25 Total 23.8 ng/ml (30-100)
== END 2018-11-29 16:39 ==
LOC: NCHCN 16:19
PROVIDERS: PCP Specialist/Technologist Athletic Trainer; Visit Provider Nurse Practitioner Family
DX: E83.51 Hypocalcemia (principal)
CPT/HCPCS: 82306; 82310

== ENCOUNTER 2019-01-09 17:09 | Emergency (ER) | payer MEDICAID, SELFPAY ==
[2019-01-09] VITALS (19 sets, daily range): BP systolic 119–122; BP diastolic 66–89; PULSE 69–86; RESP 10–26; TEMP 36.6–36.8; O2SAT 91–96
--- NOTE | 2019-01-09 17:46 | ED.GENADUL_ITS ---
Discharge Plan Disposition Patient Disposition: HOME Condition: Improving Discharge Details Chief Complaint: Allergic Clinical Impression: Allergic reaction to bee sting Primary Care Provider: Edilberto Liang ED Provider: Ashley Antoine Home Meds and New Rx's Prescriptions: New prednisone 20 mg tablet See Rx Instructions .ROUTE .COMPLEX Qty: 12 RF: 0 Continued docusate sodium [Colace] 100 mg Capsule 100 mg PO BID Qty: 60 RF: 0 amitriptyline 10 mg tablet 10 mg PO QHS Qty: 30 RF: 0 prochlorperazine maleate [Compazine] 5 mg tablet 5 mg PO Q8H PRN PRN (Reason: prn nausea, dizziness, headache, or numbness) Qty: 30 RF: 0 naproxen sodium 220 mg Tablet 220 mg PO BID RF: 0 cholecalciferol (vitamin D3) [Vitamin D3] 1,000 unit Capsule 1,000 unit PO DAILY RF: 0 Discharge Instructions Instructions: General Allergic Reaction (ED) Additional Instructions: Take the steroids until finished. Alternate Tylenol and Motrin as needed and directed for pain. Take Benadryl as needed and directed for any itching. Use your EpiPen as needed and directed. Follow-up with the primary care doctor in 2 days for reevaluation. Return immediately to the emergency department if you develop any worsening or new concerning symptoms. Discharge Data Discharge Date/Time-TO BE ENTERED AT DEPARTURE: 01/09/19 23:24 Discharge Physician: Ashley Antoine Medical Decision Making 48-year-old female with a history of anaphylaxis to bee stings who presents with hornet sting to her left thigh 30 minutes ago now presenting with sensation of palatal and throat swelling and nasal congestion. Denies any nausea, vomiting, dizziness, headache. She is hemodynamically stable. She is speaking in full sentences with no signs of airway compromise. Lungs clear to auscultation. Due to her history of anaphylaxis, will give IM epi, IV Solu-Medrol, Benadryl and normal saline fluid bolus. Patient informed that she will be observed for a minimum of 4 hours for symptoms and any possible rebound. She also expressed concerned about to possible spider bites on her back. She had not seen a spider. These areas appear mildly indurated without infection, significant trauma and no obvious foreign bodies. Discussed that the steroids given for the bee sting will likely be beneficial and I do not see an indication for antibiotics at this time. 2129 -- pt re-evaluated just after 4 hr asif - pt still c/o throat swelling. She has no signs of airway compromise. Oropharynx appears normal to inspection. She is speaking in full sentences. Discussed that we will observe for another 2 hours. Will give another liter IV fluids and food. 2309 --patient feels much better and is requesting to go home. Oropharynx appears normal to inspection. Bug bites/bee sting appears much improved. She is speaking in full sentences. No signs of airway compromise. We will send home with a prescription for steroids. Patient has an EpiPen and she is instructed to use as directed. She requests a dose of Benadryl prior to discharge. She is instructed to follow-up with primary care doctor for reevaluation and to return here if worse. HPI General Mode of arrival: ambulatory . Date/Time Provider Initiated Documentation: 01/09/19 17:22 . Limitations to Documentation: no limitations . Information obtained by: patient . HPI Narrative: Patient is a 48-year-old fema le with a history of anaphylaxis to bee stings who presents with sensation of throat and palatal swelling after a sting by a hornet to her left thigh 30 minutes ago. Patient states she has an EpiPen but she was afraid to use it. She states shortly after the bee sting she noticed left thigh swelling and redness and pain. She applied topical Benadryl cream but had not taken any Benadryl. She states shortly after the bee sting, she noted throat swelling and sensation of tightness and swelling in her palate as well as nasal congestion and ear fullness. She denies any fever, chest pain, shortness of breath, nausea or vomiting. She admits to a previous history of anaphylaxis to bee stings with throat swelling and difficulty breathing. Related Data Home Medications Medication Instructions Recorded Confirmed amitriptyline 10 mg PO QHS #30 tab 11/14/18 docusate sodium [Colace] 100 mg PO BID #60 cap 11/14/18 prochlorperazine maleate 5 mg PO Q8H PRN PRN #30 tab 11/14/18 [Compazine] cholecalciferol (vitamin D3) 1,000 unit PO DAILY 01/09/19 01/09/19 [Vitamin D3] naproxen sodium 220 mg PO BID 01/09/19 01/09/19 prednisone See Rx Instructions .ROUTE 01/09/19 .COMPLEX #12 tab Previous Rx's Medication Instructions Recorded amitriptyline 10 mg PO QHS #30 tab 11/14/18 docusate sodium [Colace] 100 mg PO BID #60 cap 11/14/18 prochlorperazine maleate 5 mg PO Q8H PRN PRN #30 tab 11/14/18 [Compazine] prednisone See Rx Instructions .ROUTE 01/09/19 .COMPLEX #12 tab Allergies Allergy/AdvReac Type Severity Reaction Status Date / Time clindamycin Allergy Severe Anaphylaxsi Unverified 01/09/19 17:23 s venom-honey bee Allergy Unverified 01/09/19 17:23 wheat Allergy Unverified 01/09/19 17:23 acetaminophen AdvReac Severe Anaphylaxsi Unverified 01/09/19 17:23 [From Tylenol Cold Head s Congestion] dextromethorphan AdvReac Severe Anaphylaxsi Unverified 01/09/19 17:23 [From Tylenol Cold Head s Congestion] guaifenesin AdvReac Severe Anaphylaxsi Unverified 01/09/19 17:23 [From Tylenol Cold Head s Congestion] phenylephrine AdvReac Severe Anaphylaxsi Unverified 01/09/19 17:23 [From Tylenol Cold Head s Congestion] seasonal allergies Allergy Uncoded 01/09/19 17:23 General Stated Complaint: Allergic KURT: 3 Review of Systems Review of Systems All systems reviewed & are unremarkable except as noted in HPI and below Constitutional Reports as per HPI, Denies chills and Denies fever(s) Eyes Denies blurry vision ENT Denies dizziness, Reports nasal congestion, Denies sore throat, Reports throat swelling and Reports other (tightness in palate) Cardiovascular Denies chest pain and Denies dyspnea Respiratory Denies cough and Denies dyspnea Gastrointestinal Denies abdominal pain, Denies diarrhea and Denies vomiting Genitourinary Denies hematuria and Denies dysuria Musculoskeletal Denies back pain and Denies numbness Integumentary/Breasts Reports lesions (L lateral thigh) and Denies rash Neurologic Denies dizziness, Denies focal weakness and Denies numbness Allergic/Immunologic Reports throat swelling [facility] Medical History Arthritis (Acute) GERD (gastroesophageal reflux disease) (Chronic) History of peritonsillar abscess (Resolved) History of traumatic brain injury (Chronic) Incisional hernia (Chronic) Kidney stones (Chronic) Neck pain (Chronic) Non-celiac gluten sensitivity (Chronic) Vertigo (Acute) Surgical History section (Inactive) Cholecystectomy (Inactive) Dilation and curettage (Inactive) S/P hernia repair (Chronic) Social History Smoking/Tobacco Use Status: Current every day Tobacco Type: cigars Alcohol Intake: never Drug use: Never 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 Do you feel safe at home: Yes Do you feel safe in your relationship?: Yes Exam Const General: cooperative and healthy appearing Orientation: alert and awake HENMT Head: normal to inspection Ears: hearing grossly normal bilaterally, external ears normal and TM's normal bilaterally General nose exam: external nose normal Face and sinus: normal facial exam Mouth: oral mucosae normal Teeth and gingiva: dentition normal Throat: posterior oropharynx normal Eyes General: appearance normal, both eyes and all related structures Eyelids: eyelids normal Pupils: PERRL EOM: EOM intact bilaterally Neck Neck: normal visual inspection Lymphatic: no lymphadenopathy noted Chest Chest: normal inspection of the chest Resp Effort & Inspection: normal respiratory effort and able to speak in complete sentences Auscultation: clear to auscultation bilaterally Cardio Rate: regular rate Rhythm: regular rhythm GI Inspection: normal to inspection Palpation: soft, not firm, no guarding, no hepatosplenomegaly, no masses and nontender Auscultation: normal bowel sounds Back/Spine/Pelvis Back: no CVA tenderness Neuro General: alert and awake Cognition: normal cognition Speech: speech normal Gait: normal gait Motor: muscle tone normal throughout Sensory Exam: no sensory deficits noted Extrem General: normal to inspection, full ROM and normal capillary refill Shoulder/upper arm images: 1. Approximate 2x2cm area of tender minimal induration with central pinpoint lesion which may be c/w bite. NO drainage, bleeding, erythema, fluctuance, ecchymoses or foreign bodies 2. Small pinpoint lesion with minimal surrounding tender 1x1cm area of minimal induration w/o erythema, fluctuance, ecchymosis or drainage. Upper/lower leg/hip images: 1. 2 x 2 millimeter erythematous lesion consistent with bee sting without surrounding induration, fluctuance, drainage, bleeding, ecchymosis. No foreign bodies noted. Psych Appearance: grossly normal Mental Status: mental status grossly normal Speech and Movement: speech and movement normal Affect: normal affect Thought Process: normal Course Vital Signs Temperature 97.9 F 01/09/19 17:16 Pulse 83 01/09/19 17:16 Respiratory Rate 16 01/09/19 17:16 Blood Pressure 119/89 01/09/19 17:16 Pulse Oximetry 95 01/09/19 17:16 Temperature 97.9 F 01/09/19 17:16 Temperature Source Skin 01/09/19 17:16 Pulse 83 01/09/19 17:16 Respiratory Rate 16 01/09/19 17:16 Respiratory Effort Non-Labored 01/09/19 17:20 Blood Pressure 119/89 01/09/19 17:16 Pulse Oximetry 95 01/09/19 17:16 Pain Level 7 01/09/19 17:16
[2019-01-09] MEDS: EPINEPHrine 0.3 MG KIT IM (17:48)
[2019-01-09] MEDS: methylPREDNISolone SUCC 125 MG VIAL IVP (17:58)
[2019-01-09] MEDS: diphenhydrAMINE 50 MG/ML VIAL 25 MG IVP (17:58)
--- NOTE | 2019-01-09 18:03 | NUR.NOTE ---
pt medicated as per mdo ivf infusing no distress noted none stated Nursing Note:
[2019-01-09] MEDS: Normal Saline 1,000 ML 1000 ML IV ×2 (18:04→21:45)
== END 2019-01-09 23:24 | disposition home or self-care (01) ==
PROVIDERS: Emergency Provider Physician Assistant; PCP Specialist/Technologist Athletic Trainer
DX: T63.441A Toxic effect of venom of bees, accidental (unintentional), initial encounter (principal); R22.0 Localized swelling, mass and lump, head
CPT/HCPCS: 96361; 96372; 96374; 96375; 99284; J0171; J1200; J2930

== ENCOUNTER 2019-02-12 21:34 | Emergency (ER) | payer MEDICAID, SELFPAY ==
[2019-02-12 21:37] VITALS: PULSE 87; RESP 16; TEMP 36.8; O2SAT 98
--- NOTE | 2019-02-12 21:44 | DI.RAD_ITS ---
SYMPTOM/DIAGNOSIS: HEARD POP, RIGHT MEDIAL WRIST PAIN RIGHT WRIST: 02/12 Three views were obtained. There is mild osteophyte formation of the ulna at the radial ulnar joint. There are mild degenerative changes also present involving the navicular multangular joints and greater multangular 1st metacarpal joint. There is no evidence of acute fracture or dislocation.
--- NOTE | 2019-02-12 21:45 | ED.GENADUL_ITS ---
Discharge Plan Disposition Patient Disposition: HOME Condition: Good Discharge Details Chief Complaint: Orthopedic Clinical Impression: Tendonitis, Hand tingling Primary Care Provider: Edilberto Liang ED Provider: Luiz Bunch Home Meds and New Rx's Prescriptions: No Action docusate sodium [Colace] 100 mg Capsule 100 mg PO BID Qty: 60 RF: 0 amitriptyline 10 mg tablet 10 mg PO QHS Qty: 30 RF: 0 prochlorperazine maleate [Compazine] 5 mg tablet 5 mg PO Q8H PRN PRN (Reason: prn nausea, dizziness, headache, or numbness) Qty: 30 RF: 0 naproxen sodium 220 mg Tablet 220 mg PO BID RF: 0 cholecalciferol (vitamin D3) [Vitamin D3] 1,000 unit Capsule 1,000 unit PO DAILY RF: 0 prednisone 20 mg tablet See Rx Instructions .ROUTE .COMPLEX Qty: 12 RF: 0 Discharge Instructions Instructions: Tendinitis (ED) Additional Instructions: The x-ray shows no evidence of significant fracture. I am concerned that you have injury to your tendons, as well as concern for compression on your nerve. Please use the wrist splint as directed. You can use the shoulder sling for position of ease however it is important that you make sure to move your shoulder multiple times throughout the day to prevent adhesive capsulitis. Please continue your Tylenol and Motrin as well as ice as needed. We will schedule an orthopedic follow-up for you and they will contact you. If you notice any worsening of your symptoms, or any new symptoms such as vomiting, diarrhea, fever, chills, shortness of breath, chest pain, numbness, weakness, or fainting , please return immediately to the emergency department for reevaluation. Please follow up with your primary care provider as soon as possible for reassessment and reevaluation. As always, it was a pleasure participating in your medical care today. Referrals: Edilberto Liang [Primary Care Provider] - Medical Decision Making This is a pleasant 48-year-old female who presents today for right wrist pain. She is right-hand dominant. Pain occurred 3 days ago when she was lifting heavy groceries. She states that she heard a pop at that time. Pain is notably worse in the wrists, and worsened with flexion of the fingers as well as supination of the wrist. Physical exam demonstrates tenderness throughout the wrist, mild swelling. She has been taking NSAIDs for the last few days without any improvement. Differential includes tendinitis, partially ruptured tendon, and less likely fracture. We will get an x-ray to rule out fracture. We will place the patient in a universal wrist splint, I do feel that she would benefit from orthopedic follow-up for further assessment of the wrist. Also of concern she has notable decrease in two-point discrimination for the fourth and fifth digits in particular. I suspect a mild neuropathy secondary to the swelling in her wrist. 10:30 PM X-ray results per virtual radiology are negative for any acute bony process or fracture. With the patient's pain, symptomatology, and clinical history I am notably concerned for tendinopathy, or partial tendon rupture. Additionally with the patient's numbness and tingling and concern for partial nerve entrapment. We will place the patient in a universal wrist splint, will schedule [facility] orthopedic follow-up for further evaluation. We discussed the importance of continued NSAIDs at home. We will give the patient a sling at her request for position of the ease as she feels this keeps her wrist from contacting surfaces while resting. We did discuss the importance of continued mobilization of her shoulder to prevent any adhesive capsulitis. I have extensively reviewed the treatment plan and discharge instructions with the patient. I have addressed all patient concerns at this time. The patient was made aware of what symptoms to monitor for that would warrant a return to the emergency department. Discussed the plan with the patient, they demonstrate verbal understanding and agreement with our assessment and plan at this time. FINDINGS: Bones/joints: No acute fracture or subluxation. Degenerative changes in the radial aspect of the wrist. Minor distal ulnar degenerative changes. Soft tissues: Normal. IMPRESSION: No acute bony pathology. Thank you for allowing us to participate in the care of your patient. Dictated and Authenticated by: Tracy López MD 02/12/2019 10:29 PM Eastern Time ([place] & [place]) HPI General Date/Time Provider Initiated Documentation: 02/12/19 21:44 . HPI Narrative: This is a 48-year-old female with no significant past medical history who presents today for evaluation right wrist pain. She is right-hand dominant. Patient states that 3 days ago she was carrying a significant amount of groceries and on both her wrist and elbow. While doing this she heard a pop and had notable pain in her wrist. This pain does radiate slightly to the elbow. However the majority of the pain is located in the wrist. Worse with movement. She has been taking Tylenol and Motrin this is not been helping at all. She does have tingling in her third fourth and fifth digit, worse in the fourth and fifth digits. She also notes significantly reduced strength secondary to pain for flexion and extension of the fingers. She denies any other complaints at this time. She denies previous injuries to the wrist. No other modifying factors. Related Data Home Medications Medication Instructions Recorded Confirmed amitriptyline 10 mg PO QHS #30 tab 11/14/18 docusate sodium [Colace] 100 mg PO BID #60 cap 11/14/18 prochlorperazine maleate 5 mg PO Q8H PRN PRN #30 tab 11/14/18 [Compazine] cholecalciferol (vitamin D3) 1,000 unit PO DAILY 01/09/19 01/09/19 [Vitamin D3] naproxen sodium 220 mg PO BID 01/09/19 01/09/19 prednisone See Rx Instructions .ROUTE 01/09/19 .COMPLEX #12 tab Previous Rx's Medication Instructions Recorded amitriptyline 10 mg PO QHS #30 tab 11/14/18 docusate sodium [Colace] 100 mg PO BID #60 cap 11/14/18 prochlorperazine maleate 5 mg PO Q8H PRN PRN #30 tab 11/14/18 [Compazine] prednisone See Rx Instructions .ROUTE 01/09/19 .COMPLEX #12 tab Allergies Allergy/AdvReac Type Severity Reaction Status Date / Time clindamycin Allergy Severe Anaphylaxsi Unverified 01/09/19 17:23 s venom-honey bee Allergy Unverified 01/09/19 17:23 wheat Allergy Unverified 01/09/19 17:23 acetaminophen AdvReac Severe Anaphylaxsi Unverified 01/09/19 17:23 [From Tylenol Cold Head s Congestion] dextromethorphan AdvReac Severe Anaphylaxsi Unverified 01/09/19 17:23 [From Tylenol Cold Head s Congestion] guaifenesin AdvReac Severe Anaphylaxsi Unverified 01/09/19 17:23 [From Tylenol Cold Head s Congestion] phenylephrine AdvReac Severe Anaphylaxsi Unverified 01/09/19 17:23 [From Tylenol Cold Head s Congestion] seasonal allergies Allergy Uncoded 01/09/19 17:23 General Stated Complaint: Orthopedic KURT: 4 Review of Systems Review of Systems All systems reviewed & are unremarkable except as noted in HPI and below PFSH Social History Smoking/Tobacco Use Status: Current every day Tobacco Type: cigars Alcohol Intake: never Drug use: Never Substance use type: does not use 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 3.ENT: Atraumatic external nose and ears. Moist MM. Neck: Symmetric, trachea midline, No thyromegaly. 4.CVS: +S1/S2, No murmurs or gallops. Peripheral pulses 2+ and equal in all extremities. Brisk capillary refill in all extremities. 5.RESP: Unlabored respiratory effort. Clear to auscultation bilaterally. No wheezes rales or rhonchi 6.GI: Soft, Nontender/Nondistended, No hepatosplenomegaly. No guarding or rebound. 7.MSK: Normocephalic/Atraumatic, Extremities w/o deformity. No cyanosis or clubbing. Right wrist: Notable pain at the medial and lateral aspects of the wrist. Pain is significantly worse with palpation, flexion, and extension. Notably increased with supination. Right hand: Symmetrically palpable radial and ulnar pulses. Capillary refill less than 2 seconds to all digits. Intact sensation to light touch of the radial, median and ulnar nerves demonstrated by testing in the dorsal web space of the thumb, the distal palmar aspect of the index finger, and the lateral surface of the fifth finger. 2 point discrimination intact to 5mm (up to 6mm can be normal in digits 3-5) for the first and second finger, however third fourth and fifth finger demonstrates notable decrease in two-point discrimination. Subjectively the sensation over these fingers also feels notably atypical to the patient. Intact recurrent median nerve as demonstrated by ability to move thumb fully through opposition, abduction and flexion. Notable pain with flexion and extension of the second through fifth finger. Pain is radiating from the wrist. No significant pain or decrease in strength for movement of the thumb. Pain is notably worse with flexion when compared to extension. 8.Skin: Warm, Dry. No rashes or lesions. 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 Sensation grossly intact, however please refer to musculoskeletal for further neurologic assessment. 10.Psych: (AAO) x3. Appropriate mood and affect Course Vital Signs Temperature 36.8 C 02/12/19 21:37 Pulse 87 02/12/19 21:37 Respiratory Rate 16 02/12/19 21:37 Pulse Oximetry 98 02/12/19 21:37 Temperature 36.8 C 02/12/19 21:37 Temperature Source Temporal Artery Scan 02/12/19 21:37 Pulse 87 02/12/19 21:37 Respiratory Rate 16 02/12/19 21:37 Respiratory Effort Non-Labored 02/12/19 21:37 Blood Pressure Position Supine 02/12/19 21:37 Pulse Oximetry 98 02/12/19 21:37 Oxygen Delivery Method Room Air 02/12/19 21:37 Oxygen Flow Rate 0 02/12/19 21:37 Pain Level 7 02/12/19 21:37
--- NOTE | 2019-02-12 22:29 | DI.VRAD_ITS ---
EXAM: XR Right Wrist EXAM DATE/TIME: 02/12/2019 21:45 CLINICAL HISTORY: 48 years old, female; Other: [place] pop, right medial wrist pain TECHNIQUE: Imaging protocol: XR Right wrist. Views: 3 or more views. COMPARISON: No relevant prior studies available. FINDINGS: Bones/joints: No acute fracture or subluxation. Degenerative changes in the radial aspect of the wrist. Minor distal ulnar degenerative changes. Soft tissues: Normal. IMPRESSION: No acute bony pathology. Dictated and Authenticated by: Tracy López MD. Ordering:WANDA Dee MD
== END 2019-02-12 22:45 | disposition home or self-care (01) ==
PROVIDERS: Emergency Provider Student in an Organized Health Care Education/Training Program; PCP Specialist/Technologist Athletic Trainer
DX: M25.531 Pain in right wrist (principal); M77.9 Enthesopathy, unspecified; R20.2 Paresthesia of skin
CPT/HCPCS: 29125; 99283; 73110; L3650; L3807

== ENCOUNTER 2019-10-16 09:28 | Outpatient (REF) | payer MEDICAID, SELFPAY ==
[2019-10-16 19:46] LABS: Abs Immature Grans 0.07 k/cumm (0.0-0.09); Absolute Basophil Count 0.04 k/cumm (0.0-0.2); Absolute Eosinophil Count 0.23 k/cumm (0.0-0.7); Absolute Lymphocyte Count 3.54 k/cumm (1.2-3.4); Absolute Monocyte Count 0.89 k/cumm (0.11-0.7); Basophils % 0.3; Eosinophils % 1.9; HCT 43.1 % (36.0-46.0); HGB 14.3 g/dL (12.0-15.5); Immature Grans % 0.6 %; Lymphocytes % 28.9; Mean Corp. HGB Concentration 33.2 g/dL (32.0-36.0); Mean Corpuscular Hemoglobin 28.9 pg (27.0-33.0); Mean Corpuscular Volume 87.1 fL (80-95); Monocytes % 7.3; Platelet Count 384 x1000/uL (130-400); RBC 4.95 m/cumm (4.00-5.20); RBC Distribution Width 15.6 % (11.7-14.6); White Blood Cell Count 12.25 k/cumm (4.4-10.8)
[2019-10-16 19:50] LABS: Absolute Neutrophil Count 7.47 k/cumm (1.2-6.7)
[2019-10-16 19:58] LABS: Hemoglobin A1C 5.6 % (3.8-5.6)
[2019-10-16 20:08] LABS: ALT 41 U/L (14-59); AST 26 U/L (15-37); Albumin 3.6 g/dL (3.4-5.0); Alkaline Phosphatase 70 U/L (46-116); Anion Gap 9.7 mmol/L (3-11); BUN 7 mg/dL (7-18); Bilirubin, Total 0.4 mg/dL (0.2-1.0); CO2 24.3 mmol/L (21.0-32.0); CREATININE 0.75 mg/dL (0.55-1.02); Calcium 8.8 mg/dL (8.5-10.1); Calculated LDL 103 mg/dL (<100); Chloride 102 mmol/L (98-107); Cholesterol 168 mg/dL (<200); Glucose 97 mg/dL (74-106); HDL Cholesterol 55 mg/dL (40-60); Potassium 4.6 mmol/L (3.5-5.1); Sodium 136 mmol/L (136-145); TSH 1.25 uIU/mL (0.36-3.74); Total Protein 6.7 g/dL (6.4-8.2); Triglyceride 54 mg/dL (<150)
[2019-10-16 20:45] LABS: ESR 14 mm/hr (0-20)
[2019-10-16 21:21] LABS: Creatine Kinase 51 U/L (26-192)
== END 2019-10-16 09:48 ==
LOC: NCHCN 09:28
PROVIDERS: PCP Specialist/Technologist Athletic Trainer; Visit Provider Nurse Practitioner Family
DX: R07.89 Other chest pain (principal); K13.79 Other lesions of oral mucosa; K21.9 Gastro-esophageal reflux disease without esophagitis
CPT/HCPCS: 80053; 80061; 82550; 85652; 86709; 86765; 86787; 87340; 83036; 84443; 85025; 86735; 86762

== ENCOUNTER 2019-10-18 09:15 | Outpatient (REF) | payer MEDICAID, SELFPAY | END 2019-10-18 09:35 | LOC: NCHCN 09:15 | PROVIDERS: PCP Specialist/Technologist Athletic Trainer; Visit Provider Nurse Practitioner Family | DX: N39.0 Urinary tract infection, site not specified (principal) | CPT/HCPCS: 87086 ==

== ENCOUNTER 2019-12-28 15:41 | Outpatient (CLI) | payer MEDICAID, SELFPAY ==
--- NOTE | 2019-12-28 | DI.RAD_ITS ---
EXAM: XR CHEST 2V PA LATERAL CLINICAL HISTORY: COUGH R05, R/O PNEUMONIA TECHNIQUE: 2D digital imaging was performed. COMPARISON: No exams were available for comparison FINDINGS: MEDIASTINUM: Normal. HEART: Normal. PULMONARY VASCULATURE: Normal. LUNGS: Clear. PLEURAL SPACE: No pleural effusion or pneumothorax. BONE:Normal. OTHER FINDINGS:Normal. IMPRESSION: No acute pulmonary findings. DATA REPOSITORY: RADIATION DOSE DELIVERED:
== END 2019-12-28 16:01 ==
PROVIDERS: PCP Specialist/Technologist Athletic Trainer; Visit Provider Nurse Practitioner Family
DX: R05 Cough (principal)
CPT/HCPCS: 71046

== ENCOUNTER 2020-01-02 07:17 | Outpatient (CLI) | payer MEDICAID, SELFPAY ==
[2020-01-06 01:15] LABS: SARS-CoV-2 RNA Undetected (Undetected); SARS-CoV-2 Specimen Source Nasopharynx
== END 2020-01-02 07:37 ==
PROVIDERS: PCP Specialist/Technologist Athletic Trainer; Visit Provider Nurse Practitioner Family
DX: R05 Cough (principal); Z11.59 Encounter for screening for other viral diseases
CPT/HCPCS: U0003

== ENCOUNTER 2020-01-07 21:38 | Emergency (ER) | payer MEDICAID, SELFPAY ==
[2020-01-07 21:41] VITALS: BP 135/81; PULSE 81; RESP 18; TEMP 36.9; O2SAT 95
--- NOTE | 2020-01-07 21:53 | ED.GENADUL_ITS ---
Discharge Plan Disposition Patient Disposition: HOME Condition: Good Discharge Details Chief Complaint: EyeProblem Clinical Impression: Swelling of left eyelid, Bug bite Primary Care Provider: Edilberto Liang ED Provider: Luiz Bunch Home Meds and New Rx's Prescriptions: New diphenhydramine HCl [Benadryl] 25 MG capsule 25 mg PO Q6H Qty: 50 RF: 0 prednisone 50 MG tablet 50 mg PO DAILY Qty: 5 RF: 0 Continued prochlorperazine maleate [Compazine] 5 mg tablet 5 mg PO Q8H PRN PRN (Reason: prn nausea, dizziness, headache, or numbness) Qty: 30 RF: 0 cholecalciferol (vitamin D3) [Vitamin D3] 1,000 unit Capsule 1,000 unit PO DAILY RF: 0 Discharge Instructions Instructions: General Allergic Reaction (ED) Additional Instructions: Your coronavirus testing was negative. At this time I suspect the swelling is a mild allergic reaction from the bug bite, but does not need epinephrine at this time at all. Please take 25 mg of Benadryl every 6 hours as well as a steroid every day as directed. Please apply ice to your eyelid as often as possible to help with the swelling sleep at a 45 degree angle to also help with the swelling. If you notice any worsening of your symptoms, or any new symptoms such as worsening swelling, significant spreading of the swelling, difficulty swallowing, vomiting, diarrhea, fever, chills, shortness of breath, chest pain, numbness, weakness, or fainting , please return immediately to the emergency department for reevaluation. Please follow up with your primary care provider as soon as possible for reassessment and reevaluation. As always, it was a pleasure participating in your medical care today. Referrals: Edilberto Liang [Primary Care Provider] - Medical Decision Making 49-year-old female presents today for evaluation of left eye swelling. Patient states that 3 to 4 hours ago she was out in the garden tending to her weeds and foley, when a which she suspects was a black fly bit her on the left eyelid. She noticed gradual swelling after this. She had some children's Benadryl and took some children's Benadryl liquid. She has been using ice and has noticed a slight increase in the swelling since then. She admits to a feeling of mild pressure around the eye secondary to the swelling but otherwise denies any vision changes, difficulty swallowing, difficulty breathing through her mouth or throat, chest pain, shortness of breath, fever, chills, cough, rash or other complaints. 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 She does have an EpiPen at home. She denies any new medications. She has no other complaints at this time. Physical exam demonstrates evidence of mild swelling around the left eye, no redness to suggest orbital cellulitis. No significant pain with movement of the eye. Vision is intact. Pupil is reactive no sluggish pupil. No evidence of an aphylaxis whatsoever, no lesions in the mouth, no signs of airway compromise. Signs and symptoms are inconsistent with anaphylaxis. Clinically consistent with mild swelling. At this time I do feel the patient would benefit from dose of steroids secondary to her history of reactions, as well as 50 mg of Benadryl with 25 mg every 6 hours on an outpatient basis. No indication for epinephrine at this time. With the inciting event being 3 to 4 hours away and the symptoms only being notably mild at this time in regards to systemic symptoms I see no indication for prolonged observation.. However I did discuss continued observation here in the ED and the patient declined. I did also look of the patient's coronavirus testing and this was negative and this was discussed with the patient. At this time with the current status of her symptomatology she will be discharged home after being given her first dose of steroids and Benadryl here. Prescription will be given for home. Discussed red flags for which to return. HPI General Date/Time Provider Initiated Documentation: 01/07/20 21:39 . HPI Narrative: 49-year-old female presents today for evaluation of left eye swelling. Patient states that 3 to 4 hours ago she was out in the garden tending to her weeds and foley, when a which she suspects was a black fly bit her on the left eyelid. She noticed gradual swelling after this. She had some children's Benadryl and took some children's Benadryl liquid. She has been using ice and has noticed a slight increase in the swelling since then. She admits to a feeling of mild pressure around the eye secondary to the swelling but otherwise denies any vision changes, difficulty swallowing, difficulty breathing through her mouth or throat, chest pain, shortness of breath, fever, chills, cough, rash or other complaints. 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 She does have an EpiPen at home. She denies any new medications. She has no other complaints at this time. Related Data Home Medications Medication Instructions Recorded Confirmed prochlorperazine maleate 5 mg PO Q8H PRN PRN #30 tab 11/14/18 02/16/19 [Compazine] cholecalciferol (vitamin D3) 1,000 unit PO DAILY 01/09/19 03/15/19 [Vitamin D3] diphenhydramine HCl [Benadryl] 25 mg PO Q6H #50 cap 01/07/20 prednisone 50 mg PO DAILY #5 tab 01/07/20 Previous Rx's Medication Instructions Recorded prochlorperazine maleate 5 mg PO Q8H PRN PRN #30 tab 11/14/18 [Compazine] diphenhydramine HCl [Benadryl] 25 mg PO Q6H #50 cap 01/07/20 prednisone 50 mg PO DAILY #5 tab 01/07/20 Allergies Allergy/AdvReac Type Severity Reaction Status Date / Time clindamycin Allergy Severe Anaphylaxsi Unverified 03/15/19 10:27 s venom-honey bee Allergy Unverified 03/15/19 10:27 wheat Allergy Unverified 03/15/19 10:27 acetaminophen AdvReac Severe Anaphylaxsi Unverified 03/15/19 10:27 [From Tylenol Cold Head s Congestion] dextromethorphan AdvReac Severe Anaphylaxsi Unverified 03/15/19 10:27 [From Tylenol Cold Head s Congestion] guaifenesin AdvReac Severe Anaphylaxsi Unverified 03/15/19 10:27 [From Tylenol Cold Head s Congestion] phenylephrine AdvReac Severe Anaphylaxsi Unverified 03/15/19 10:27 [From Tylenol Cold Head s Congestion] seasonal allergies Allergy Uncoded 03/15/19 10:27 General Stated Complaint: EyeProblem KURT: 4 Review of Systems All systems reviewed & are unremarkable except as noted in HPI and below PFSH Medical History Arthritis (Acute) GERD (gastroesophageal reflux disease) (Chronic) History of peritonsillar abscess (Resolved) History of traumatic brain injury (Chronic) Incisional hernia (Chronic) Kidney stones (Chronic) Neck pain (Chronic) Non-celiac gluten sensitivity (Chronic) Vertigo (Acute) States it is related to brain injury Surgical History section (Inactive) Cholecystectomy (Inactive) Laparoscopic Dilation and curettage (Inactive) S/P hernia repair (Chronic) Social History Smoking/Tobacco Use Status: Current every day Tobacco Type: cigars Alcohol Intake: never Drug use: Never Substance use type: does not use 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 No evidence of cellulitis. EOMI, Peripheral vision intact. No nystagmus. No clinical signs of septal/ orbital cellulitis, no redness around the eye, no proptosis. No hyphema, no signs of trauma around the eye, no periorbital emphysema. No sluggishness of the pupil. No ophthalmoplegia. No afferent pupillary defect. Visual acuity normal 3.ENT: Atraumatic external nose and ears. Moist MM. Neck: Symmetric, trachea midline, No thyromegaly. 4.CVS: +S1/S2, No murmurs or gallops. Peripheral pulses 2+ and equal in all extremities. Brisk capillary refill in all extremities. 5.RESP: Unlabored respiratory effort. Clear to auscultation bilaterally. No wheezes rales or rhonchi 6.GI: Soft, Nontender/Nondistended, No hepatosplenomegaly. No guarding or rebound. 7.MSK: Normocephalic/Atraumatic, Extremities w/o deformity or ttp No cyanosis or clubbing, Normal movement of all extremities 8.Skin: Warm, Dry. No rashes or lesions. 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 Sensation grossly intact, no focal neurologic deficits. 10.Psych: (AAO) x3. Appropriate mood and affect Course Vital Signs Vital signs: Vital Signs Temperature 36.9 C 01/07/20 21:41 Pulse 81 01/07/20 21:41 Respiratory Rate 18 01/07/20 21:41 Blood Pressure 135/81 01/07/20 21:41 Pulse Oximetry 95 01/07/20 21:41 Temperature 36.9 C 01/07/20 21:41 Temperature Source Temporal Artery Scan 01/07/20 21:41 Pulse 81 01/07/20 21:41 Respiratory Rate 18 01/07/20 21:41 Respiratory Effort 01/07/20 21:51 Blood Pressure 135/81 01/07/20 21:41 Blood Pressure Position Sitting 01/07/20 21:41 Pulse Oximetry 95 01/07/20 21:41 Oxygen Delivery Method Room Air 01/07/20 21:41 Oxygen Flow Rate 0 01/07/20 21:41
[2020-01-07] MEDS: predniSONE 20 MG TAB 60 MG PO (22:00)
[2020-01-07] MEDS: diphenhydrAMINE 25 MG CAP 50 MG PO (22:00)
== END 2020-01-07 22:06 | disposition home or self-care (01) ==
PROVIDERS: Emergency Provider Student in an Organized Health Care Education/Training Program; PCP Nurse Practitioner Family
DX: S00.262A Insect bite (nonvenomous) of left eyelid and periocular area, initial encounter (principal); W57.XXXA Bitten or stung by nonvenomous insect and other nonvenomous arthropods, initial encounter
CPT/HCPCS: 99283; J7512

== ENCOUNTER 2021-09-15 14:50 | Outpatient (REF) | payer MEDICAID, SELFPAY ==
[2021-09-17 12:04] LABS: COVID-19 RT-PCR UVMMC Result Negative (Negative)
== END 2021-09-15 14:51 | disposition home or self-care (01) ==
LOC: NCHCN 14:50
PROVIDERS: PCP Nurse Practitioner Family; Visit Provider Nurse Practitioner Family
DX: R53.83 Other fatigue (principal); J02.9 Acute pharyngitis, unspecified
CPT/HCPCS: U0003; 87070

== ENCOUNTER 2023-01-22 18:10 | Outpatient (REF) | payer MEDICAID, SELFPAY ==
[2023-01-22 19:26] LABS: ALT 29 U/L (14-59); AST 29 U/L (15-37); Alkaline Phosphatase 70 U/L (46-116); Anion Gap 10.9 mmol/L (3-11); BUN 8 mg/dL (7-18); Bilirubin, Total 0.3 mg/dL (0.2-1.0); CO2 25.1 mmol/L (21.0-32.0); CREATININE 0.7 mg/dL (0.55-1.02); Calcium 9.4 mg/dL (8.5-10.1); Calculated LDL 122 mg/dL (<100); Chloride 101 mmol/L (98-107); Cholesterol 199 mg/dL (<200); Estimated GFR 104.65 (mL/min/1.73m2); Glucose 94 mg/dL (74-106); HDL Cholesterol 62 mg/dL (40-60); Potassium 4.3 mmol/L (3.5-5.1); Sodium 137 mmol/L (136-145); Triglyceride 75 mg/dL (<150)
[2023-01-22 19:32] LABS: Vitamin D 25 Total 24.8 ng/mL (30-100)
[2023-01-22 20:09] LABS: Uric Acid 4.1 mg/dL (2.6-6.0)
[2023-01-25 10:24] LABS: Lyme Ab w Rflx to Lyme Confirm Negative (Negative)
[2023-01-26 22:52] LABS: Anaplasma phagocytophilum Negative (Negative); B. miyamotoi PCR Negative (Negative); Babesia divergens/MO-1 Negative (Negative); Babesia duncani Negative (Negative); Babesia microti Negative (Negative); Ehrlichia chaffeensis Negative (Negative); Ehrlichia ewingii/canis Negative (Negative); Ehrlichia muris eauclairensis Negative (Negative)
== END 2023-01-22 18:11 | disposition home or self-care (01) ==
LOC: NCHCN 18:10
PROVIDERS: PCP Nurse Practitioner Family; Visit Provider Nurse Practitioner Family
DX: E55.9 Vitamin D deficiency, unspecified (principal)
CPT/HCPCS: 80053; 80061; 82306; 87798; 84550; 86618

== ENCOUNTER 2023-01-28 15:38 | Outpatient (CLI) | payer MEDICAID, SELFPAY ==
--- NOTE | 2023-01-28 | DI.RAD_ITS ---
Exam(s) XR KNEE LT 3V AP,LAT,ESTELLE EXAM: XR KNEE LT 3V AP,LAT,ESTELLE CLINICAL HISTORY: LT KNEE PAIN, M25.562. TECHNIQUE: 2D digital imaging was performed. COMPARISON: No exams were available for comparison FINDINGS: 3 views No evidence of fracture but there is a joint effusion signifying internal derangement. There are mil d degenerative changes in the lateral compartment evident. Medial compartment appears unremarkable. IMPRESSION: Some degenerative change in the lateral compartment. Joint effusion noted. DATA REPOSITORY: RADIATION DOSE DELIVERED:
== END 2023-01-28 15:58 ==
LOC: DI 15:39
PROVIDERS: PCP Nurse Practitioner Family; Visit Provider Nurse Practitioner Family
DX: M25.562 Pain in left knee (principal)
CPT/HCPCS: 73562

== ENCOUNTER 2023-02-16 10:16 | Outpatient (REF) | payer MEDICAID, SELFPAY ==
--- NOTE | 2023-02-16 09:45 | PAPFT_PTH ---
PATIENT: Mariama Xiao LOC: [facility]#:[id number] AGE/SX: 52/F ROOM: RE02/16/[address]: Leslie Guzman : 1970 BED: DIS: 02/16/2023 SPEC #: [id number] RECD: 02/16/23 18:19 STATUS: JANINA REAsha #: [id number] AGUSTIN: 02/16/23 09:[address]: Leslie Guzman DEPT: [facility] Cytology RECD BY: Jenny Gavin Tissues: 1 - CX/ENDOCX FOR PAP SMEARS Procedures: PAP THIN PREP/UVM Screening HPV DNA PROBE Comments: [id number]
== END 2023-02-16 10:17 | disposition home or self-care (01) ==
LOC: NCHCN 10:16
PROVIDERS: PCP Nurse Practitioner Family; Visit Provider Nurse Practitioner Family
DX: Z12.4 Encounter for screening for malignant neoplasm of cervix (principal); Z11.51 Encounter for screening for human papillomavirus (HPV)
CPT/HCPCS: 88142; 87624

== ENCOUNTER 2023-02-22 12:51 | Outpatient (REF) | payer MEDICAID, SELFPAY ==
[2023-02-22 11:54] LABS: Crystals (BF) No Crystals seen
[2023-02-22 12:00] LABS: Clarity Clear; Mononuclear Cells 91 %; Nucleated Cells 698 uL (0); Polynuclear Cells 9 %
== END 2023-02-22 12:52 | disposition home or self-care (01) ==
LOC: LBN 12:51
PROVIDERS: PCP Nurse Practitioner Family; Visit Provider Physician Assistant
DX: M23.92 Unspecified internal derangement of left knee (principal)
CPT/HCPCS: 87070; 87205; 89051; 89060